=== PATIENT | female | born 1990 | race Caucasian/White ===

== ENCOUNTER 2016-07-29 22:08 | Outpatient (CLI) | payer MEDICAID ==
[~2016-07-29] VITALS: Ht 170.2 cm; Wt 123.2 kg
[~2016-07-29 22:08] MED LIST: BRET2.5 PO; IRON325 MG PO; MAKENA250 MG/ML IM; MOTRIN 800800 MG/TAB PO; NO HOME MEDICATIONS; NORCO 325 MG-51 TAB PO; PERCOCET 325 MG1 TA2 PO; PRENATAL1 TA7 PO; PROVENTIL0.09 MG/A1 IH; SEPTRA DS 8001 TAB PO; TYLENOL 325MG325 MG; ZYRTEC 10MG10 MG PO
[2016-07-29 22:30] VITALS: BP 132/63; PULSE 105; TEMP 98.1
[2016-07-29] MEDS ORDERED: IRON325 MG PO (22:40)
[2016-07-29] MEDS ORDERED: TYLENOL 500MG500 MG PO (22:40)
[2016-07-29] MEDS ORDERED: VITAMIN D1000 IU PO (22:41)
[2016-07-29 22:50] VITALS: BP 132/63; PULSE 105; TEMP 98.1
[2016-07-29 23:09] LABS: PH 6 (5-8); SQUAMOUS EPITHELIAL 0-2 /hpf; URINE APPEARANCE Clear; URINE BACTERIA Rare /hpf; URINE BILIRUBIN Negative (NEGATIVE); URINE BLOOD Negative (NEGATIVE); URINE COLOR Straw; URINE GLUCOSE Negative (NEGATIVE); URINE KETONE Negative (NEGATIVE); URINE RBC 0-2 /hpf; URINE UROBILINOGEN Negative (NEGATIVE); URINE WBC 0-2 /hpf
[2016-07-29 23:20] VITALS: BP 115/59; PULSE 93
== END 2016-07-29 23:43 | disposition home or self-care (01) ==
LOC: LDRO 22:08
PROVIDERS: Obstetrics & Gynecology
DX: O62.9 Abnormality of forces of labor, unspecified (principal); Z3A.31 31 weeks gestation of pregnancy

== ENCOUNTER 2016-08-08 06:34 | Inpatient (IN) | payer MEDICAID ==
[~2016-08-08] VITALS: Ht 170.3 cm; Wt 131.8 kg
[~2016-08-08 06:34] MED LIST changes: +TYLENOL 500MG500 MG PO; +VITAMIN D1000 IU PO
[2016-09-21] VITALS (17 sets, daily range): BP systolic 81–126; BP diastolic 37–84; PULSE 74–110; TEMP 97.4–98.6
[2016-09-21 06:25] LABS: BASO % 0.3 % (0.0-2.0); EOS # 0.2 (0.0-0.7); EOS % 2.2 % (0-4.0); GRAN # 5.8 (1.4-6.5); GRAN % 64.6 % (42.2-75.2); HEMATOCRIT 32.1 % (37.0-47.0); HEMOGLOBIN 10.3 g/dl (12.5-16.0); LYMPH # 1.9 (1.2-3.4); LYMPH % 20.9 % (20.0-51.0); MEAN CELL VOLUME 83 fl (80.0-100.0); MEAN CORPUSCULAR HEMOGLOBIN 27 pg (27.0-31.0); MEAN CORPUSCULAR HGB CONC 32 g/dl (33.0-37.0); MEAN PLATELET VOLUME 10.5 fl (7.4-10.4); PLATELET COUNT 197 K/mm3 (130-400); RED BLOOD COUNT 3.85 M/mm3 (4.10-5.30); REDCELL DISTRIBUTION WIDTH-CV 17.5 % (11.5-14.5); WHITE BLOOD COUNT 8.9 K/mm3 (4.8-10.8)
[2016-09-22 02:30] VITALS: BP 102/67; PULSE 77; TEMP 97.7
[2016-09-22 07:06] VITALS: BP 116/63; PULSE 82; TEMP 98.1
[2016-09-22] MEDS ORDERED: PERCOCET 325 MG1 TA2 PO (09:02)
[2016-09-22] MEDS ORDERED: IBU800 M1 PO (09:03)
== END 2016-09-22 11:17 | disposition home or self-care (01) | DRG 766 ==
LOC: OB 09-21 05:04 → LDR 09-21 06:42 → OB 09-21 17:40 → LDRO 09-28 06:34 → EDSTATUS 09-28 06:41
PROVIDERS: Obstetrics & Gynecology
PROC: 10D00Z1 Extraction of Products of Conception, Low, Open Approach (ICD-10-PCS; principal; 2016-09-21)
PROC: 0UB70ZZ Excision of Bilateral Fallopian Tubes, Open Approach (ICD-10-PCS; 2016-09-21)
DX: O34.211 Maternal care for low transverse scar from previous cesarean delivery (principal); N85.8 Other specified noninflammatory disorders of uterus; Z40.09 Encounter for prophylactic removal of other organ; Z3A.39 39 weeks gestation of pregnancy; Z37.0 Single live birth
CPT/HCPCS: J0690; J1885; J2175; J2250; J2270; J2370; J2405; J2550; J2590; J7120

== ENCOUNTER 2016-08-26 18:21 | Outpatient (CLI) | payer MEDICAID ==
[~2016-08-26] VITALS: Ht 172.7 cm; Wt 129.1 kg
[2016-08-26 18:30] VITALS: BP 124/63; PULSE 103; TEMP 98.1
[2016-08-26 18:40] VITALS: BP 124/63; PULSE 103; TEMP 98.1
[2016-08-26 19:00] VITALS: BP 128/60; PULSE 97
[2016-08-26 19:44] LABS: PH 7 (5-8); SQUAMOUS EPITHELIAL 0-2 /hpf; URINE APPEARANCE Clear; URINE BACTERIA None Seen /hpf; URINE BILIRUBIN Negative (NEGATIVE); URINE BLOOD Negative (NEGATIVE); URINE COLOR Yellow; URINE GLUCOSE Negative (NEGATIVE); URINE KETONE Negative (NEGATIVE); URINE RBC None Seen /hpf; URINE UROBILINOGEN Negative (NEGATIVE); URINE WBC 0-2 /hpf
[2016-08-26 20:00] VITALS: BP 137/66; PULSE 100
== END 2016-08-26 20:20 | disposition home or self-care (01) ==
LOC: LDRO 18:21
PROVIDERS: Obstetrics & Gynecology
DX: O26.893 Other specified pregnancy related conditions, third trimester (principal); R10.9 Unspecified abdominal pain; Z3A.35 35 weeks gestation of pregnancy

== ENCOUNTER → 2016-09-25 | Outpatient (CLI) | payer MEDICAID ==
[~2016-09-25] MED LIST changes: +IBU800 M1 PO
== END ==
LOC: OLC 11:11
DX: Z39.1 Encounter for care and examination of lactating mother (principal); Z71.89 Other specified counseling